=== PATIENT | male | born 1970 | race Caucasian/White ===

== ENCOUNTER 2023-08-26 08:35 | Inpatient (IN) | payer OTHER ==
[2023-08-26] VITALS (8 sets, daily range): BP systolic 129–160; BP diastolic 69–88; PULSE 69–89; RESP 15–98; TEMP 97.6–98.9; O2SAT 94–98
[~2023-08-26] VITALS: Ht 188 cm; Wt 190.0 kg
[2023-08-26 09:02] LABS: Basophils # (auto) 0 10 ^3/uL (0-0.2); Basophils % (auto) 0.4 % (0.0-2.0); Eosinophils # (auto) 0.1 10 ^3/uL (0-0.8); Eosinophils % (auto) 1.2 % (0.0-7.0); Hematocrit 42.4 % (41.0-53.0); Hemoglobin 14.3 g/dL (13.5-17.5); Lymphocytes # (auto) 1.6 10 ^3/uL (0.4-5.4); Lymphocytes % (auto) 16.7 % (10.0-50.0); Mean Corpuscular Hemoglobin 28.3 pg (28.0-32.0); Mean Corpuscular Hgb Conc. 33.7 g/dL (32.0-36.0); Mean Corpuscular Volume 83.9 fL (80.0-100.0); Monocytes # (auto) 0.5 10 ^3/uL (0-1.3); Monocytes % (auto) 5.2 % (0.0-12.0); Neutrophils # (auto) 7.2 10 ^3/uL (1.6-8.6); Neutrophils % (auto) 76.5 % (37.0-80.0); Nucleated Red Blood Cells % 0.2 %; Red Blood Cells 5.06 10^6/uL (4.5-5.90); Red Cell Distribution Width 15.6 % (11.8-14.3); White Blood Cell 9.4 10^3/uL (4.4-10.8)
[2023-08-26 09:20] LABS: Alanine Aminotransferase 29 U/L (7-40); Albumin 4.2 g/dL (3.2-4.8); Alkaline Phosphatase 72 U/L (46-116); Anion Gap 5 (5-15); Aspartate Aminotransferase 23 U/L (13-40); BUN/Creatinine Ratio 15.7 (10.0-20.0); Blood Urea Nitrogen 13 mg/dL (9-23); Calcium 9.2 mg/dL (8.5-10.1); Carbon Dioxide 29 mmol/L (20-30); Chloride 103 mmol/L (98-107); Glucose 135 mg/dL (74-106); Potassium 4.3 mmol/L (3.5-5.1); Sodium 137 mmol/L (136-145)
[2023-08-26 09:21] LABS: Bilirubin, Total 0.7 mg/dL (0.2-1.0); Total Protein 6.7 g/dL (5.7-8.2)
[2023-08-26] MEDS ORDERED: HEPARIN DRIP/D5W 100UNITS/ML 250 ML IV SCH ×2 (09:45→20:45)
[2023-08-26 10:47] LABS: Triglycerides 243 mg/dL (< 150)
[2023-08-26 10:48] LABS: LDL Cholesterol 99 mg/dL (< 100)
[2023-08-26 10:49] LABS: Cholesterol 170 mg/dL (< 200); HDL Cholesterol 37 mg/dL (40-59)
[2023-08-26] MEDS: ASPirin 81 mg TAB PO ONE (11:23)
[2023-08-26] MEDS: CLOPIDOGREL 300 MG TAB PO ONE (11:23)
[2023-08-26] MEDS: HEPARIN SODIUM (PORCINE) 5000 UNITS/ML 1ML VIAL IV ONE (11:25)
[2023-08-26] MEDS ORDERED: DOCUSATE SOD 100 MG CAP PO PRN ×2 (11:30→13:15)
[2023-08-26] MEDS ORDERED: MORPHINE SULFATE INJ 2 MG/ml SYRG IV PRN ×2 (11:30→13:15)
[2023-08-26] MEDS ORDERED: ONDANSETRON HCL 4 MG/2 ML VIAL IV PRN ×2 (11:30→13:15)
[2023-08-26] MEDS ORDERED: NITROGLYCERIN 0.4 MG SL TAB SL PRN ×2 (11:30→13:15)
[2023-08-26] MEDS ORDERED: HYDROmorphone HCL 2 MG/ML VL/or syr IV PRN (11:30)
[2023-08-26] MEDS: HEPARIN DRIP/D5W 100UNITS/ML 250 ML IV SCH (11:38)
[2023-08-26] MEDS: SODIUM CHLORIDE 0.9% 1,000 ML IV SCH (12:41)
[2023-08-26] MEDS: PANTOPRAZOLE 40 MG/10 ML VIAL INJ IV SCH (12:41)
[2023-08-26 12:51] LABS: Urine WBC None Seen /hpf (0 - 3)
[2023-08-26 13:05] LABS: Urine Bacteria NONE SEEN /hpf (None Seen); Urine Blood 1+ /uL (Negative); Urine Clarity Clear (Clear); Urine Color Colorless (Yellow); Urine Protein, UAD Negative (Negative); Urine Specific Gravity 1.005 (1.001-1.035); Urine Urobilinogen Normal (Negative); Urine pH 7.5 (5.0-8.0)
[2023-08-26] MEDS ORDERED: ACETAMINOPHEN 325 MG TAB PO PRN (13:15)
[2023-08-26] MEDS ORDERED: SODIUM CHLOR 0.9% PF (SALINE LOCK) 10ML VIAL/SYR IV SCH (14:00)
[2023-08-26 14:21] LABS: Partial Thromboplastin Time 47.9 SEC (24.5-34.5); Prothrombin Time 10.5 sec (9.3-11.8)
[2023-08-26] MEDS: LIDOCAINE 2%HCL (LOCAL ANESTH.) INJ 20ML MDV ONE (14:30)
[2023-08-26] MEDS: IODIXANOL 320MG/ML 100ML BTL IV ONE ×3 (14:30→16:46)
[2023-08-26] MEDS: fentaNYL CITRATE 100 MCG/2 ML VL ONE ×2 (15:04→16:46)
[2023-08-26] MEDS: VERAPAMIL 2.5MG/ML INJ 2ML VIAL IV ONE (15:04)
[2023-08-26] MEDS: ANGIOMAX 250 MG VIAL IV ONE ×2 (15:04→15:14)
[2023-08-26] MEDS: MIDAZOLAM HCL 2MG/2ML 2ml VIAL (1mg/ml) ONE ×2 (15:04→16:46)
[2023-08-26] MEDS: SODIUM CHL 0.9% 50 ML ONE ×2 (15:05→15:15)
[2023-08-26] MEDS: HEPARIN SODIUM (PORCINE) 5000 UNITS/ML 1ML VIAL ONE (15:59)
[2023-08-26 19:45] LABS: INR 1.12 (0.9-1.15); Prothrombin Time 11.7 sec (9.3-11.8)
[2023-08-26] MEDS: HYDROmorphone HCL 2 MG/ML VL/or syr IV PRN (19:55)
[2023-08-26] MEDS ORDERED: LISI40TA16 PO (21:38)
[2023-08-26] MEDS: SODIUM CHLOR 0.9% PF (SALINE LOCK) 10ML VIAL/SYR IV SCH (22:00)
[2023-08-27] VITALS (7 sets, daily range): BP systolic 128–151; BP diastolic 66–75; PULSE 62–82; RESP 17–20; TEMP 97.1–98.4; O2SAT 93–96
[2023-08-27] MEDS: ATORVASTATIN 20 MG TAB PO SCH (01:08)
[2023-08-27 03:03] LABS: INR 1.03 (0.9-1.15); Partial Thromboplastin Time 32.8 SEC (24.5-34.5); Prothrombin Time 10.8 sec (9.3-11.8)
[2023-08-27] MEDS: HYDROcodone-ACET 5/325MG TAB PO PRN (07:03)
[2023-08-27] MEDS: CLOPIDOGREL BISULFATE 75 MG TAB PO SCH (09:27)
[2023-08-27] MEDS: ASPirin 81 mg TAB PO SCH (09:28)
[2023-08-27] MEDS: LISINOPRIL 10 MG TAB PO SCH (09:28)
[2023-08-27] MEDS ORDERED: METO-6 PO (16:17)
[2023-08-27] MEDS ORDERED: ASPI-325 PO (16:17)
[2023-08-27] MEDS ORDERED: ATOR20TA50 PO (16:17)
[2023-08-27] MEDS ORDERED: CLOP75TA70 PO (16:17)
[2023-08-27] MEDS ORDERED: LISI10TA34 PO (16:17)
[2023-08-28 05:00] VITALS: BP 135/61; PULSE 75; RESP 20; TEMP 97.6; O2SAT 94
[2023-08-28 06:35] LABS: Basophils # (auto) 0 10 ^3/uL (0-0.2); Basophils % (auto) 0.3 % (0.0-2.0); Eosinophils # (auto) 0.1 10 ^3/uL (0-0.8); Hematocrit 40.4 % (41.0-53.0); Hemoglobin 13.5 g/dL (13.5-17.5); Lymphocytes # (auto) 2.2 10 ^3/uL (0.4-5.4); Lymphocytes % (auto) 17.6 % (10.0-50.0); Mean Corpuscular Hemoglobin 27.9 pg (28.0-32.0); Mean Corpuscular Hgb Conc. 33.3 g/dL (32.0-36.0); Mean Corpuscular Volume 83.6 fL (80.0-100.0); Monocytes # (auto) 0.8 10 ^3/uL (0-1.3); Neutrophils # (auto) 9.5 10 ^3/uL (1.6-8.6); Neutrophils % (auto) 75.1 % (37.0-80.0); Nucleated Red Blood Cells % 0.1 %; Red Blood Cells 4.84 10^6/uL (4.5-5.90); White Blood Cell 12.7 10^3/uL (4.4-10.8)
[2023-08-28 06:45] LABS: Chloride 101 mmol/L (98-107); Potassium 3.8 mmol/L (3.5-5.1); Sodium 136 mmol/L (136-145)
[2023-08-28 06:46] LABS: Anion Gap 9 (5-15); Carbon Dioxide 26 mmol/L (20-30)
[2023-08-28 06:47] LABS: Calcium 9.2 mg/dL (8.5-10.1)
[2023-08-28 06:51] LABS: Glucose 127 mg/dL (74-106)
[2023-08-28 06:52] LABS: BUN/Creatinine Ratio 9.6 (10.0-20.0); Blood Urea Nitrogen 7 mg/dL (9-23)
[2023-08-28 08:00] VITALS: PULSE 75
[2023-08-28 08:30] VITALS: BP 122/80; PULSE 71; RESP 19; TEMP 97.9; O2SAT 95
[2023-08-28] MEDS: METOPROLOL SUCCINATE XL 50 MG TAB PO SCH (09:56)
== END 2023-08-28 12:30 | disposition home or self-care (01) | DRG 322 ==
LOC: ER 08:35 → TELE 11:18 → TELE-EAST 18:08
PROVIDERS: ADMIT Internal Medicine; ATTEND Nurse Practitioner Acute Care
PROC: 027034Z Dilation of Coronary Artery, One Artery with Drug-eluting Intraluminal Device, Percutaneous Approach (ICD-10-PCS; principal; 2023-08-26)
PROC: 4A023N7 Measurement of Cardiac Sampling and Pressure, Left Heart, Percutaneous Approach (ICD-10-PCS; 2023-08-26)
PROC: B211YZZ Fluoroscopy of Multiple Coronary Arteries using Other Contrast (ICD-10-PCS; 2023-08-26)
DX: I21.4 Non-ST elevation (NSTEMI) myocardial infarction (principal); Z68.43 Body mass index [BMI] 50.0-59.9, adult; E66.01 Morbid (severe) obesity due to excess calories; E78.5 Hyperlipidemia, unspecified; I10 Essential (primary) hypertension; Z79.02 Long term (current) use of antithrombotics/antiplatelets; Z95.5 Presence of coronary angioplasty implant and graft
CPT/HCPCS: 36415; 71046; 80048; 80053; 80061; 81001; 82962; 83036; 83880; 84443; 84484; 85025; 85610; 85730; 92941; 93005; 93306; 93458; 96365; 96375; 96376; 99152; 99291; C9113; G0378; J2250; Q9967